=== PATIENT | male | born 1970 | race Caucasian/White ===

== ENCOUNTER 2016-11-16 02:20 | Emergency (ER) | payer SELFPAY ==
[~2016-11-16] VITALS: Ht 165.1 cm; Wt 81.6 kg
--- NOTE | 2016-11-16 02:20 | NUR ---
PT PRESENTS TO ED WITH CHEST PAIN 10/10. DENIES N/V/D. SWEATING ON FORHEAD, AAOX4 WITH EVEN AND STEADY GAIT; LUNGS CLEAR BL; HR EVEN AND REGULAR; PT DENIES ANY FEVER, OR COUGH AT THIS TIME; PATIENT STATES PAIN OF 10/10 AT THIS TIME; VSS; PATIENT POSITIONED FOR COMFORT; HOB ELEVATED; BEDRAILS UP X2; BED DOWN. ER MD MADE AWARE OF PT STATUS OF POSSIBLE STEMI
--- NOTE | 2016-11-16 02:20 | NUR ---
AT BEDSIDE WITH PT
[2016-11-16] MEDS ORDERED: ASPIRIN 81 MG TAB.CHEW ONE (02:31)
[2016-11-16] MEDS ORDERED: ONDANSETRON 4 MG/2 ML VIAL ONE (02:31)
[2016-11-16 02:32] VITALS: BP 248/169
[2016-11-16] MEDS ORDERED: MORPHINE SULFATE 4 MG/ML SYR ONE (02:32)
--- NOTE | 2016-11-16 02:35 | NUR ---
Morphine 4 mg and Zofran 4 mg IV given for pain.
--- NOTE | 2016-11-16 02:35 | NUR ---
LABS DRAWN AT BEDSIDE
[2016-11-16] MEDS ORDERED: NITROGLYCERIN 2% 1 GM PKT TP ONE ×2 (02:36→02:50)
--- NOTE | 2016-11-16 02:44 | NUR ---
JEREL STARTED, PT KENDALL. WELL.
[2016-11-16] MEDS ORDERED: METOPROLOL 5 MG/5 ML VIAL ONE (02:45)
--- NOTE | 2016-11-16 02:49 | NUR ---
2ND DOSE LOPRESSOR GIVEN. PT TOL. CARO. AT BEDSIDE
[2016-11-16] MEDS ORDERED: LORazepam 2 MG/ML VIAL IVP ONE (02:50)
[2016-11-16] MEDS ORDERED: MORPHINE SULFATE 4 MG/ML SYR IVP ONE ×2 (02:50→05:25)
[2016-11-16] MEDS ORDERED: METOPROLOL 5 MG/5 ML VIAL IVP ONE ×2 (02:50)
[2016-11-16] MEDS ORDERED: ASPIRIN 325 MG TAB PO ONE (02:50)
--- NOTE | 2016-11-16 02:57 | NUR ---
2ND PIV STARTED IN LEFT HAND, ATIVAN AND MORPHINE GIVEN. PT KENDALL WELL.
--- NOTE | 2016-11-16 02:58 | NUR ---
[facility] HERE TO TAKE PT TO [facility]. PT IN STABLE CONDITION AT THIS TIME. REPORT GIVEN TO DUONG AT [facility].
[2016-11-16 03:14] VITALS: BP 216/152
--- NOTE | 2016-11-16 03:34 | NUR ---
CONTACT AT [facility] IS DUONG [phone]
[2016-11-16] MEDS ORDERED: ONDANSETRON 4 MG/2 ML VIAL IVP ONE (05:25)
== END 2016-11-16 02:58 | disposition short-term general hospital (02) ==
LOC: MED 02:20
DX: I21.09 ST elevation (STEMI) myocardial infarction involving other coronary artery of anterior wall (principal); I10 Essential (primary) hypertension; N28.9 Disorder of kidney and ureter, unspecified; E87.6 Hypokalemia; F17.210 Nicotine dependence, cigarettes, uncomplicated
CPT/HCPCS: 36415; 80053; 84484; 85025; 85610; 85730; 93005; 96374; 96375; 99285; J2060; J2270; J2405; J3490